=== PATIENT | male | born 1990 | race Caucasian/White ===

== ENCOUNTER 2025-06-01 16:23 | Inpatient (IN) | payer MEDICAID, SELFPAY ==
--- OUTSIDE RECORDS SUMMARY | 2024-04-04 08:00 | XMS_ITS ---
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 Discussed in detail with patient how to practice social distancing by avoiding public spaces and crowds now, wearing a mask in public to keep nose and mouth covered, and washing hands frequently especially before eating and after using the bathroom. Return to clinic if you develop any symtpoms of concern to be rescreened or go to the emergency room if you are having concerning symptoms for COVID-19. 04/04/2024 Other Plan Of Treatment Treatment Notes Assessment Notes Encounter for screening for COVID-19 Cov id screening is negative. Discussed in detail with patient how to practice social distancing by avoiding public spaces and crowds now, wearing a mask in public to keep nose and mouth covered, and washing hands frequently especially before eating and after using the bathroom. Return to clinic if you develop any symtpoms of concern to be rescreened or go to the emergency room if you are having concerning symptoms for COVID-19. Progress Notes * Navya SCHREIBEROB: 0 (34 yo M)Acc No.[id number]:04/04/2024 Progress Notes Patient: Ryan SANTIAGO Provider: GABY Julien :1990 A ge:33 Y S ex:Male Date:04/04/2024 Address:[address] [place], [place] [id number] Subjective: * Chief Complaints: * 1 . office: CPE. * HPI: G eneral: Symptom Screen: - Fever in the last 1 week? Patient denies - New or worsening cough in the last 1 week? Patient denies. - Contact will known COVID exposure in last 5 days? Patient denies -new rash within last 3 weeks? Patient denies RN/MA: - Have you received the COVID-19 vaccine? - Have you received COVID-19 booster? - Have you been tested positive for COVID -19 in the last 7 days? If so where and why?. * ROS: N o acute C/P no acute SOB, No problem with urine, No heartburn or abdominal pain. Endorses being able to climb one fight of stairs without stopping due to SOB, Mood: stable, appetite: good, sleeping well. Denies new skin rashes. * Medical History: Objective: * Vitals: Assessment: * Assessment: 1. E ncounter for screening for COVID-19 - Z11.52 (Primary) Plan: * Treatment: * Images: Billing Information: * Visit Code: * Procedure Codes: Care Plan Details* * Electronic signature of Anil Miranda on 06/01/2025 at 10:09 PM EST Sign off status: Pending * Provider: GABY Julien Date: 1 Generated for Maggy ribera/Rm/Joshua on: 08/02/2024 10:09 PM EST
--- OUTSIDE RECORDS SUMMARY | 2025-03-11 16:00 | XMS_ITS ---
Author Organization [facility] Address [address] [place] [id number] Care Team Providers Care Professor Of Historical Theology Name Role Phone Cedric Miranda Primary Care Provider Migration, Provider Unavailable Unavailable Allergies Allergen (clinical drug ingredient) Drug/Non Drug Allergy documented on EMR Reaction Allergy Type Onset Date Status Penicillin rash Drug Allergy Active REASON FOR VISIT Multum To Medispan Conversion Encounter Medications Medication SIG (Take, Route, Fr equency, Duration) Notes Start Date End Date Status clonazePAM 0.5 MG 1 tab(s) orally 3 ti mes a day as needed for severe anxiety for 30 days 08/06/2023 Active Social History Sex Assigned At : Social History Observation Description Sex Assigned At Male Encounters Encounter Location Date Provider Diagnosis [address] [address] 03/11/2025 Provider Migration Plan Of Treatment No Information Progress Notes * Anneliese SCHREIBERoDOB: 0 (34 yo M)Acc No.[id number]:03/11/2025 Patient: Ryan SANTIAGO Provider: :1990 A ge:34 Y S ex:Male Date:03/11/2025 Address:[address] [place], [place] [phone] Pcp:Cedric Miranda Subjective: * Chief Complaints: * 1 . Multum To Medispan Conversion Encounter. * Medical History: * Medications: T aking clonazePAM 0.5 MG Tablet 1 tab(s) orally 3 times a day as needed for severe anxiety * Allergies: P enicillin: rash - Allergy - Criticality High. Objective: * Vitals: Assessment: Plan: * Treatment: * Images: Billing Information: * Visit Code: * Procedure Codes: * Electronic signature of Prov ider Migration on 06/01/2025 at 10:09 PM EST Sign off status: Pending * Provider: Date: 0 03/11/2025 Generated for Maggy ribera/Rm/Joshua on: 1 08/02/2024 10:09 PM EST
[2025-06-01 14:35] VITALS: BP 153/93; PULSE 95; RESP 18; TEMP 36.4; O2SAT 98
[2025-06-01 17:42] VITALS: BMI 28.4
[2025-06-01] MEDS: Flu Vacc TS2025-26(6mo up)/PF 0.5 ML SYRINGE IM (18:11)
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
[2025-06-01 19:20] VITALS: BP 139/80; PULSE 146; RESP 16; TEMP 36.6; O2SAT 96
[2025-06-01 19:40] VITALS: PULSE 106
--- NOTE | 2025-06-01 20:32 | PC.NURSE ---
Addendum entered by Uzma Mcdaniel RN 06/01/25 20:34: No c/o or pain or any other sx Original Note: 06/01/25 manual HR of 146 at 1720 rechecked at 1940 and was 106 manual. Jeanette tsang NP aware. Will relay to AM providers.
--- NOTE | 2025-06-01 21:41 | P.EN_ITS ---
Event Note Date of Service: 06/01/25 Event Note: Attempted to see patient for hospitalist H&P consult, nurse accompanied me bedside. Patient refusing to provide any medical information and feels like he is being accused of lying when asked about his medical history. Tried to calm patient down and discussed the importance of the consult in the reason why and patient continued to withhold the conversation, suggested patient can reach out if any medical concerns otherwise we will leave him alone at this time. Did offer language interpreter as the patient states that he has a heart condition but he diffusely declined and became more frustrated. Thank you for allowing me to participate in the pt's care. Signing off. Please contact the medical team if any questions or concerns. Time Spent With Patient Time: Total time managing care of this patient today ____ minutes.
--- OUTSIDE RECORDS SUMMARY | 2025-06-01 22:09 | XMS_ITS | Patient Health Record ---
Author Organization [facility] Address [address] [place] [address] Care Team Providers Care Recreational Aide Name Role Phone Cedric Miranda Primary Care Provider [phone] Migration, Provider Unavailable Unavailable Allergies Allergen (clinical drug ingredient) Drug/Non Drug Allergy documented on EMR Reaction Allergy Type Onset Date Status Penicillin rash Drug Allergy Active Reason For Referral No Information Medications Medication SIG (Take, Route, Fr equency, Duration) Notes Start Date End Date Status clonazePAM 0.5 MG 1 tab(s) orally 3 ti mes a day as needed for severe anxiety for 30 days 08/06/2023 Active Immunizations Vaccine Route Administration Date Status Comme nts Hepatitis A IM Intramuscular 04/01/2023 Administered Influenza IM Intramuscular 04/01/2023 Administered Hepatitis B (20 or more) IM Intramuscular 04/01/2023 Administered Hepatitis B (20 or more) IM Intramuscular 05/05/2023 Administered [facility] [id number] 2 Social History Tobacco Use: Social History Observation Description Date Details (start date - stop date) Current Smoker NA - NA Sex Assigned At : Social History Observation Description Sex Assigned At Male Tobacco Use Assessment MU Question Answer Notes What is your current smoking status? current smo ker How often do you smoke? every day How many cigarettes a day do you smoke? 5 or les s Are you interested in quitting? thinking about q uitting Patient counseled on the nadir gers of tobacco use and advised to quit: 07/08/2023 Problems Problem Type SNOMED Code ICD Code Onset Dates Problem Status W/U Status Risk Notes Problem Leukocytosis (134440429) Elevated white blood cell count, unspecified (D72.829) Active confirmed Problem Thyrotoxicosis (92375643) Thyrotoxicosis, unspecified without thyrotoxic crisis or storm (E05.90) Active confirmed Problem Overweight (682629944) Overweight (E66.3) Active confirmed Problem Mixed hyperlipidemia (583892809) Mixed hyperlipidemia (E78.2) Active confirmed Problem Moderate recurrent major depression (11692043) Major depressive disorder, recurrent, moderate (F33.1) Active confirmed Problem Anxiety disorder (102235586) Anxiety disorder, unspecified (F41.9) Active confirmed Problem Essential hypertension (58741328) Essential (primary) hypertension (I10) Active confirmed Problem Cervicalgia (08008437) Cervicalgia (M54.2) Active confirmed Problem Backache (884002238) Dorsalgia, unspecified (M54.9) Active confirmed Problem Body mass index 25-29 - overweight (900316604) Body mass index [BMI] 26.0-26.9, adult (Z68.26) Active confirmed Problem Sheltered homelessness (195904558304745) Sheltered homelessness (Z59.01) Active confirmed Encounters Encounter Location Date Provider Diagnosis [facility] [address] [place] [address] 03/11/2025 Provider [facility] [address] [place], [place] [phone] 09/26/2024 Ángeldieliparisa Miranda Plan Of Treatment Pending Test Test Name Order Date CR Spine Cervical 2 or 3 Views 3 US Thyroid 04/01/2023 CR Spine Lumbar 2 or 3 Views 04/01/2023 CBC WITH AUTO DIFF 05/05/2023 Insurance Providers Payer Name Payer Address Payer Phone Subscriber Number Group Number Insured Name Patient Relationship to Insured Coverage Start Date Coverage End Date [place] Medicaid C3 [address] [place], [place] [id number] Ryan Moreno Self - patient is the insured 3 Medical (General) History Medical History History ICD Code HX of psych admission but unaware of dx MDD,, anxiety D/O HTN seizure hx per clt Hospitalization History Reason Date(Month/Year) Psych admission to [facility] 2020
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
[2025-06-02 07:52] VITALS: BP 152/100; PULSE 100; RESP 20; TEMP 36.9; O2SAT 98
[2025-06-02 08:12] LABS: Alanine Aminotransferase 31 U/L (0-40); Albumin Level 5.1 g/dL (3.5-5.0); Alkaline Phosphatase 81 U/L (39-117); Anion Gap 15 (12-20); Aspartate Amino Transferase 24 U/L (5-37); Blood Urea Nitrogen 16 mg/dL (9-16); Calcium 10.0 mg/dL (8.4-10.2); Carbon Dioxide 22 mmol/L (22-29); Chloride 112 mmol/L (96-108); Cholesterol 218 mg/dL (<200); Creatinine Clr Calc Pharmacy 104.7; Estimated Glomerular Filt Rate > 60; HDL Cholesterol 43 mg/dL (>40); Magnesium 2.4 mg/dL (1.6-2.6); Potassium 3.6 mmol/L (3.3-5.1); Sodium 145 mmol/L (135-145); Total Protein 8.0 g/dL (6.5-8.0); Triglycerides 118 mg/dL (<150)
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
[2025-06-02 08:29] LABS: Free T4 (Free Thyroxine) 1.24 ng/dL (0.71-1.85); Thyroid Stimulating Hormone 1.36 uIU/mL (0.32-4.0)
[2025-06-02 08:41] LABS: Folate 13.5 ng/mL (> or = 4.0); Vitamin B12 607 pg/mL (200-900)
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
[2025-06-02 11:21] VITALS: BP 132/89; PULSE 109
[2025-06-02 13:00] LABS: Hemoglobin 18.0 g/dl (14.0-18.0); Mean Corpuscular HGB Conc 32.7 g/dl (31.0-36.0); Mean Corpuscular Hemoglobin 29.6 pg (27.0-33.0); Mean Corpuscular Volume 90.6 fL (80.0-98.0); NRBC Abs Auto 0.000 X10*3/uL (0.0-0.012); NRBC Pct Auto 0.0 /100WBC (0.0-0.2); PLT CLUMP 1; Red Blood Count 6.08 X10*6/uL (4.60-5.80)
[2025-06-02 14:07] LABS: Hematocrit 55.1 % (42.0-52.0)
[2025-06-02 14:09] LABS: Platelet Count 264 X10*3/uL (160-400); White Blood Count 15.7 X10*3/uL (4.8-10.8)
[2025-06-02 14:17] LABS: Atypical Lymph Absolute Manual 0.3 x10*3/uL; Atypical Lymphs Percent Manual 2 % (0-6); Lymphocytes Absolute Manual 3.0 X10*3/uL (1.2-4.9); Lymphocytes Percent Manual 19 % (20-40); Monocytes Percent Manual 4 % (2-11); Neutrophils Percent Manual 74 % (45-73)
[2025-06-02 14:18] LABS: Eosinophils Absolute Manual 0.2 X10*3/uL (0.0-0.4); Eosinophils Percent Manual 1 % (0-4); Monocytes Absolute Manual 0.6 X10*3/uL (0.1-1.2)
[2025-06-02 14:22] LABS: RBC Morphology NORMAL
[2025-06-02 15:39] LABS: Band Neutrophils Percent 0 % (3-5); Neutrophils Absolute Manual 11.6 X10*3/uL (2.0-8.3)
[2025-06-02 16:45] VITALS: BP 125/79; PULSE 82; RESP 17; O2SAT 97
[2025-06-02 20:00] VITALS: BP 120/79; PULSE 86; RESP 18; TEMP 36.8; O2SAT 98
[2025-06-03 08:30] VITALS: BP 131/82; PULSE 96; RESP 16; TEMP 36.4; O2SAT 97
[2025-06-03] MEDS: Magnesium Hydrox/Alum Hydrox 30 ML ORAL.SUSP PO (08:35)
[2025-06-03 08:42] VITALS: BP 131/82; PULSE 96
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
[2025-06-03 13:52] LABS: Resp Syncy Virus RNA Qual PCR NEGATIVE (Negative); SARS COV2 PCR INHOUSE NEGATIVE (Negative)
[2025-06-03 15:41] VITALS: BP 121/66; PULSE 104
[2025-06-03] MEDS: Throat Lozenge, Medicated LOZENGE 1 LOZENGE MUCOUS MEM (16:56)
[2025-06-03 20:00] VITALS: BP 127/64; PULSE 97; RESP 18; TEMP 36.3; O2SAT 98
[2025-06-04] MEDS: Throat Lozenge, Medicated LOZENGE 1 LOZENGE MUCOUS MEM (07:41)
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
[2025-06-04 08:00] VITALS: BP 129/80; PULSE 88; RESP 14; TEMP 36.3; O2SAT 99
[2025-06-04 09:39] VITALS: BP 120/80; PULSE 80
[2025-06-04] MEDS: Nicotine 21 MG PATCH.TD24 TRANSDERMA (11:54)
[2025-06-04 16:11] VITALS: BP 108/70; PULSE 75
[2025-06-04 20:00] VITALS: BP 127/71; PULSE 81; RESP 17; TEMP 36.8; O2SAT 97
[2025-06-04 23:45] VITALS: BP 121/78; PULSE 88
[2025-06-05 08:00] VITALS: BP 122/85; PULSE 77; RESP 16; TEMP 36.1; O2SAT 98
[2025-06-05 09:03] VITALS: BP 120/60; PULSE 80
[2025-06-05] MEDS: Throat Lozenge, Medicated LOZENGE 1 LOZENGE MUCOUS MEM (09:04)
[2025-06-05 14:13] VITALS: BP 106/83; PULSE 95; O2SAT 97
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
[2025-06-05 16:37] VITALS: BP 107/68
[2025-06-05 20:00] VITALS: BP 123/68; PULSE 90
[2025-06-06 08:00] VITALS: BP 113/61; PULSE 73; RESP 16; TEMP 36.6; O2SAT 98
[2025-06-06 08:09] LABS: Alanine Aminotransferase 33 U/L (0-40); Albumin Level 4.7 g/dL (3.5-5.0); Alkaline Phosphatase 77 U/L (39-117); Anion Gap 12 (12-20); Aspartate Amino Transferase 23 U/L (5-37); Blood Urea Nitrogen 17 mg/dL (9-16); Calcium 9.6 mg/dL (8.4-10.2); Carbon Dioxide 27 mmol/L (22-29); Chloride 108 mmol/L (96-108); Creatinine Clr Calc Pharmacy 125.0; Estimated Glomerular Filt Rate > 60; Potassium 4.3 mmol/L (3.3-5.1); Sodium 143 mmol/L (135-145); Total Protein 7.2 g/dL (6.5-8.0)
--- NOTE | 2025-06-06 10:29 | P.DS_ITS ---
DS: Providers Provider Date of admission: 06/01/25 16:23 Primary care physician: Unknown Physician Consults: 06/01/25 17:59 Consult to Hospitalist Routine Comment: Consulting Provider: [facility] Reason For Exam: admission physical 06/02/25 07:53 Consult to Hospitalist Stat Comment: Consulting Provider: [facility] Reason For Exam: pt feels throat is closing DS: Diagnosis Discharge Diagnosis (1) Unspecified psychosis: Status: Acute DS: Medications Discharge Medications Home Medications: Home Medications ?Medication ?Instructions ?Recorded ?Confirmed Wellbutrin XL 150 mg PO DAILY 06/01/2510/21 clonazepam 0.5 mg PO BID 06/01/2506/01 Data Data Completed and Pending Completed studies during hospitalization [Text1]: 06/02/25 06/02/25 06/03/25 07:24 12:48 12:45 WBC 15.7 H RBC 6.08 H Hgb 18.0 Hct 55.1 H MCV 90.6 MCH 29.6 MCHC 32.7 RDW 14.0 Plt Count 264 MPV 10.7 Immature Gran % (Auto) Cancelled Neut % (Auto) Cancelled Lymph % (Auto) Cancelled Mcclain % (Auto) Cancelled Eos % (Auto) Cancelled Baso % (Auto) Cancelled Lymph # (Auto) Cancelled Mcclain # (Auto) Cancelled Eos # (Auto) Cancelled Baso # (Auto) Cancelled Abs Immat Gran (auto) Cancelled Absolute Neuts (auto) Cancelled Absolute Nucleated RBC 0.000 Nucleated RBC % (auto) 0.0 Neutrophils % (Manual) 74 H Band Neutrophils % 0 L Lymphocytes % (Manual) 19 L Atypical Lymphs % (Man) 2 Monocytes % (Manual) 4 Eosinophils % (Manual) 1 Abs Neuts (Manual) 11.6 H Lymphocytes # (Manual) 3.0 Atyp Lymphs # (Manual) 0.3 Monocytes # (Manual) 0.6 Eosinophils # (Manual) 0.2 Platelet Estimate NORMAL Plt Morphology Comment NORMAL RBC Morphology NORMAL Sodium 145 Potassium 3.6 Chloride 112 H Carbon Dioxide 22 Anion Gap 15 BUN 16 Creatinine 1.11 Estim Creat Clear Calc 104.7 Estimated GFR > 60 Random Glucose 109 Estimat Average Glucose 108 Hemoglobin A1c % 5.4 Calcium 10.0 Magnesium 2.4 Total Bilirubin 0.8 AST 24 ALT 31 Alkaline Phosphatase 81 Total Protein 8.0 Albumin 5.1 H Triglycerides 118 Cholesterol 218 H LDL Cholesterol, Calc 152 H HDL Cholesterol 43 Vitamin B12 607 Folate 13.5 TSH 1.36 Free T4 1.24 Valproic Acid Influenza Type A (PCR) NEGATIVE Influenza Type B (PCR) NEGATIVE RSV RNA Qual (PCR) NEGATIVE SARS-CoV-2 RNA (RT-PCR) NEGATIVE 06/06/25 07:42 WBC RBC Hgb Hct MCV MCH MCHC RDW Plt Count MPV Immature Gran % (Auto) Neut % (Auto) Lymph % (Auto) Mcclain % (Auto) Eos % (Auto) Baso % (Auto) Lymph # (Auto) Mcclain # (Auto) Eos # (Auto) Baso # (Auto) Abs Immat Gran (auto) Absolute Neuts (auto) Absolute Nucleated RBC Nucleated RBC % (auto) Neutrophils % (Manual) Band Neutrophils % Lymphocytes % (Manual) Atypical Lymphs % (Man) Monocytes % (Manual) Eosinophils % (Manual) Abs Neuts (Manual) Lymphocytes # (Manual) Atyp Lymphs # (Manual) Monocytes # (Manual) Eosinophils # (Manual) Platelet Estimate Plt Morphology Comment RBC Morphology Sodium 143 Potassium 4.3 Chloride 108 Carbon Dioxide 27 Anion Gap 12 BUN 17 H Creatinine 0.93 Estim Creat Clear Calc 125.0 Estimated GFR > 60 Random Glucose 95 Estimat Average Glucose Hemoglobin A1c % Calcium 9.6 Magnesium Total Bilirubin 0.4 AST 23 ALT 33 Alkaline Phosphatase 77 Total Protein 7.2 Albumin 4.7 Triglycerides Cholesterol LDL Cholesterol, Calc HDL Cholesterol Vitamin B12 Folate TSH Free T4 Valproic Acid 59.6 Influenza Type A (PCR) Influenza Type B (PCR) RSV RNA Qual (PCR) SARS-CoV-2 RNA (RT-PCR) 06/03/25 12:45 Throat Throat Culture - Final No Group A Beta-hemolytic Streptococci isolated. DS: Summary Time Spent with Patient Time attestation: Total time managing care of this patient today ____ minutes. Discharge Plan Discharge Referrals: [facility] [Primary Care Provider, Medical] - 1 Week Discharge Medications: No Action Wellbutrin XL 150 mg PO DAILY clonazepam 0.5 mg PO BID Print Language: Djiboutian
[2025-06-06 11:21] VITALS: BP 127/67
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
[2025-06-06 15:07] VITALS: BP 126/80; PULSE 86
[2025-06-06 20:00] VITALS: BP 120/57; PULSE 90; RESP 15; TEMP 36.3; O2SAT 97
[2025-06-07] MEDS: Throat Lozenge, Medicated LOZENGE 1 LOZENGE MUCOUS MEM ×2 (02:05→08:20)
[2025-06-07 07:54] VITALS: BP 107/77; PULSE 83; RESP 20; TEMP 36.6; O2SAT 97
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
[2025-06-07 15:24] VITALS: BP 120/63; PULSE 73
[2025-06-07 19:40] VITALS: BP 113/59; PULSE 67; RESP 16; TEMP 36.2; O2SAT 97
[2025-06-07] MEDS: OLANZapine 7.5 MG TABLET 15 MG PO (20:16)
[2025-06-08 07:52] VITALS: BP 137/79; PULSE 77
[2025-06-08 07:55] VITALS: BP 137/79; PULSE 77; RESP 16; TEMP 36.2; O2SAT 99
[2025-06-08 15:11] VITALS: BP 103/67; PULSE 61
[2025-06-08 15:12] VITALS: PULSE 61
[2025-06-08] MEDS: OLANZapine 7.5 MG TABLET 15 MG PO (17:31)
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
[2025-06-08 19:48] VITALS: BP 114/62; PULSE 74; O2SAT 99
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
[2025-06-09 08:20] VITALS: BP 116/81; PULSE 66; RESP 14; TEMP 36.1; O2SAT 98
[2025-06-09 14:29] VITALS: BP 106/68; PULSE 81
[2025-06-09 20:00] VITALS: BP 125/70; PULSE 79; RESP 14; TEMP 36.3; O2SAT 97
[2025-06-09] MEDS: OLANZapine 7.5 MG TABLET 15 MG PO (20:05)
[2025-06-09 21:50] VITALS: BP 132/78
[2025-06-10] MEDS: Throat Lozenge, Medicated LOZENGE 1 LOZENGE MUCOUS MEM (04:10)
[2025-06-10 08:20] VITALS: BP 130/68; PULSE 90; RESP 14; TEMP 36.4; O2SAT 100
[2025-06-10 15:35] VITALS: BP 109/65; PULSE 85
[2025-06-10 20:00] VITALS: BP 114/59; PULSE 80; RESP 18; TEMP 36.7; O2SAT 96
[2025-06-10] MEDS: OLANZapine 7.5 MG TABLET 15 MG PO (20:26)
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
[2025-06-11 08:00] VITALS: BP 101/61; PULSE 70; RESP 16; TEMP 36.2; O2SAT 98
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
[2025-06-11] MEDS: Nicotine 21 MG PATCH.TD24 TRANSDERMA (10:55)
[2025-06-11 14:23] VITALS: BP 112/65; PULSE 94
[2025-06-11 19:30] VITALS: BP 122/77; PULSE 90; RESP 17; TEMP 36.4; O2SAT 97
[2025-06-11] MEDS: OLANZapine 7.5 MG TABLET 15 MG PO (20:05)
[2025-06-11 22:20] VITALS: BP 127/67
[2025-06-12 08:00] VITALS: BP 109/67; PULSE 84; RESP 16; TEMP 36.9; O2SAT 97
[2025-06-12] MEDS: Nicotine 21 MG PATCH.TD24 TRANSDERMA (11:22)
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
[2025-06-12] MEDS: Magnesium Hydrox/Alum Hydrox 30 ML ORAL.SUSP PO (14:20)
[2025-06-12 14:29] VITALS: BP 117/77; PULSE 86
--- NOTE | 2025-06-12 15:36 | P.DS_ITS ---
DS: Providers Provider Date of admission: 06/01/25 16:23 Date of discharge: 06/13/25 Primary care physician: Unknown Physician Attending physician on admission: Willian Tobar Consults: 06/01/25 17:59 Consult to Hospitalist Routine Comment: Consulting Provider: [facility] Reason For Exam: admission physical 06/02/25 07:53 Consult to Hospitalist Stat Comment: Consulting Provider: [facility] [place] Reason For Exam: pt feels throat is closing Attending physician on discharge: Shante Villanueva DS: Diagnosis Discharge Diagnosis (1) Delusional disorder: Status: Acute (2) Unspecified psychosis: Status: Acute DS: Medications Discharge Medications Home Medications: Home Medications ?Medication ?Instructions ?Recorded ?Confirmed Wellbutrin XL 150 mg PO DAILY 06/01/2510/21 clonazepam 0.5 mg PO BID 06/01/2506/01 Data Data Completed and Pending Completed studies during hospitalization [Text1]: 06/06/25 06/09/25 07:42 07:59 Sodium 143 Potassium 4.3 Chloride 108 Carbon Dioxide 27 Anion Gap 12 BUN 17 H Creatinine 0.93 Estim Creat Clear Calc 125.0 Estimated GFR > 60 Random Glucose 95 Calcium 9.6 Total Bilirubin 0.4 AST 23 ALT 33 Alkaline Phosphatase 77 Total Protein 7.2 Albumin 4.7 Valproic Acid 59.6 85.5 06/03/25 12:45 Throat Throat Culture - Final No Group A Beta-hemolytic Streptococci isolated. DS: Summary Hospital Course Hospital Course: Per admission note from covering psychiatric provider: Mr. Josh Parekh is a 34 years old, Croatian-speaking, [place], single male with unknown medication hx, hx of depression who arrived at [facility] via vehicle transportation from his mom secondary to suicidal ideation, perceptual disturbances, paranoia, worsening anxiety, and confusion. Patient do not understand why he was dropped off at the hospital by his mom. Patient reports that he feels confused. He admits having prior diagnosis of depression anxiety even though states that he is only on anxiety medication. History of hallucinations. History of extremely violent and mom is scared. On M3: Met with patient at 1740, patient stated reason for this admission is to get the help so that I can act the way people want me to act . Patient mumbling send a provoked someone . Feel a little bit. I do not know how to explain when asked for details of why he said that he has was provoked somewhat. Patient reported that he is single, when asked if he has any children, he states that is a very good question . So he was not sure if he had children. Reported that he has has been at the care home, at his mom's home, and on the street and consider himself as a homeless person. He was not sure how long he has been homeless. Substance use: Reports he use marijuana when I can to help me with depression . Denies that he is abusing to it. Reported that on ready quit smoking. Alcohol is not my problem. Denies other substance use. Legal issues/occupational/education level: Not able to obtain due to disorganization thought process. Trauma history: Reported that he was traumatized by stuff that insane but did not give further information. Patient reports that sometimes hearing voices when asked about hallucinations. Patient repeatedly saying thinking thinking and thinking. I can not control . Reports history of suicide attempt but could not giving details. He was not answering directly if he has suicidal thoughts or self-harm thoughts or homicidal thoughts saying nobody safe anywhere . Do not make any threatening statements. Do not demonstrate any unsafe behavior during assessment. When asked about his mood he said a lot anxiety. I am trying to figure it out . I am not making this up which his repeat a couple of times out of topic. Reported that he can not sleep or eat well lately. Patient is alert and oriented, wearing hospital attire, unkempt hair. Cooperative, but can be irritable, anxious, depressed. Very disorganized, appeared to be confused, overwhelmed racing thoughts, impaired judgment and insight. He does not know why he is here and what he is here for in what condition that he needs to be here. Placed in restraint room due to paranoid, he said that he can not be around with people. Has no knowledge about medication, poor historian, with thought blocked, limited. Poor to fair eye contact. Thought content is with treatment, motivated to get better. Do not make any suicidal or homicidal statements. Reports hearing voices, appeared to preoccupied, paranoid. Past Psychiatric History: Poor historian. Not able to obtain. Per record, patient has history of inpatient level of care admissions. Initial tx plan: Patient on 15 minute checks for safety. Admitted to M3. CV. He states that he wants to treatment, he wants to take medication. Work with treatment team to do collateral with family and outpatient providers. Patient is poor historian. Restart on Zyprexa 5 mg at bedtime tonight with p.r.n. available. Clonazepam 0.5 twice a day as needed for severe anxiety per record. We will hold Wellbutrin as a home medication at this time due to psychotic behavior. 06/02/25: T/W reviewed pt's [facility] record, where he had a similar presentation during a one month admission in 2020. Per [facility] record- He endorsed SI, AH x 3-4 wks, paranoia, poor sleep/appetite. He was noted to be suspicious, guarded, worried that his family was unsafe, somatically preoccupied, intermittently agitated and postured toward staff. Didn't require restraints. He was started on Zyprexa Zydis, which was titrated to 5 mg tid, Haldol 5 mg bid was added. Pt utilized prn haldol 5 mg, lorazepam 2 mg, and benadryl 50 mg for agitation most often in the afternoon and evening (available up to 4x/day). He was tapered off Zyprexa due to inadequate effect in tx of psychosis, Seroquel SR was added. He was dc'd on Haldol 5 mg qam/15 mg qhs, benztropine, Seroquel SR 300 mg qhs and his paranoia had improved. He presented to [facility] ~1 wk after the [facility] d/c due to c/o progressively worsening rigidity (new since d/c from [facility]), a/w generalized weakness and lower extremity spasiticity and pain, which was thought to be c/w EPS. Haldol was d/c'd and Seroquel was held, he received baclofen and clonazepam and the physical sx significantly improved. He was d/c'd on Seroquel SR 300 mg. Other prior med trials per [facility] record -risperidone -Abilify Plan- -Continue 5 min safety checks (started due to pt's irritability, disorganization, h/o aggression) -Will avoid haldol due to h/o significant EPS. -Titrate olanzapine to 10 mg at hs, increase prn olanzapine to 5 mg tid. -Pt refuses to take Seroquel. Could consider clozapine since it has a low risk of EPS. -Started Depakote ER 1000 mg for agitation/impulse control, given h/o aggressive behavior. -Added lorazepam 1 mg 4x/day prn for agitation/severe anxiety; Benadryl 50 mg 4x/day prn for anxiety (helped on [facility]) and propranolol 20 mg tid prn for EPS 06/05/25: Mother came in today for a visit, requested to talk the team. SW and covering provider met with patient and mom in the presence of entry level drafter as patient signed 3 day notice and mom has safety concerns. Mom does not think patient is stable enough. Patient agrees to retract it and then later on of today he signed another one per nursing. Patient reports he had SI prior to be coming here but he feels safe and does not have SI/SIB/HI/AVH. Report he has racing thoughts and feels like he needs to check his door all the time. Not directly saying he has OCD but feel like he does not feel safe. He has been staying in Anti room but moved to private/single room this afternoon d/t paranoid thoughts. Patient reports his mind is racing and experience high in anxiety. However, reports that he feels medications are helpful but still have lots of racing thoughts. Per record, patient has been using all PRN available which some positive effects over all. I also reviewed with patient some medication changes made today. Patient is receptive, slept better and no appetite issues. Scheduled Proprannol 20mg TID for Possible/preventative EPS/ anxiety Scheduled Olazapine 10mg in the AM at 0800 in addition to HS and PRN dose (total max of 40mg daily) Melatonin 9mg at HS for insomnia CLonidine 0.1mg TID PRN for anxiety. Noted that patient is currently on PRN Ativan and Klonopin prn. 06/06: Pt is paranoid, guarded and expressed concern about his family's safety today but refused to answer multiple questions in the setting of his paranoia. VPA level 59.6 this am. Pt agreeable to titrate VPA ER to 1500 mg tonight to reduce agitation. He has a h/o aggression. LFTs wnl. Started olanzapine 5 mg at midday. Otherwise continue current tx plan 06/07: Pt reports that his thoughts are clearer but he remains paranoid, guarded . T/W encouraged pt to retract 3-day note for further stabilization and he reluctantly agreed after t/w informed him that we will aim for a d/c date of next or . Pt agreed w/ plan to titrate the hs olanzapine to 15 mg. 06/08: Pt reports feeling calmer, spending more time in the milieu, seems less paranoid. Will continue current tx plan. Will check VPA level tomorrow am 06/09: VPA level 85.5. Mood, psychosis, and irritability have improved. Continue current tx plan. 06/10: no changes today 06/11: refusing VPA, paranoid, perseverative 06/12: Pt calmly requests to be d/c'd today due to concerns about his grandmother. Unclear if his grandmother is actually ill but his thought process, irritability/agitation have significantly improved and he denies AHVH, SI/violent ideation. He took his VPA last night. Pt was able to tolerate a discussion around holding off on d/c till tomorrow if he remains relatively stable. His mom will slat pickler him at 11. Status at Discharge Functional status at discharge: independent ambulation Overall status at discharge: patient is progressing back to baseline Time Spent with Patient Time attestation: Total time managing care of this patient today ____ minutes. Time spent: Less than 30 minutes Discharge Plan Discharge Anticipated Discharge Date/Time: 06/13/25 11:00 Patient Disposition: Home, Self-Care Discharge Diagnosis: Delusional disorder Unspecified mood d/o Referrals: [facility] (therapy and psychiatry services) [Other] - 1 Week Referral Note: walk in hours are Thursday-Thursday 8am-8pm, as well as weekend hours from 9am-5pm. Crisis services available 19/01 [facility] [Provider Group] - 1 Week Referral Note: 06-13-25 [facility] was added to patients chart. Please call [phone] to schedule a follow up appt within 7-10 days of discharge. No release or PCP on file. Discharge Medications: New diphenhydramine HCl 25 mg Capsule See Rx Instructions .ROUTE .COMPLEX PRN (Reason: anxiety ) 30 Days Qty: 120 0RF Rx Instructions: Take 2 caps po bid prn for anxiety and/or muscle stiffness after taking risperidone nicotine 21 mg/24 hr Patch 24 Hour 21 mg transdermal DAILY PRN (Reason: nicotine craving) 28 Days Qty: 28 0RF propranolol 20 mg Tablet 20 mg PO TID 30 Days Qty: 90 0RF Protocol: Hold for SBP/HR < HOLD for SBP < : 90 HOLD for HR < : 60 divalproex 500 mg Tablet Extended Release 24 Hr 1,500 mg PO BEDTIME 30 Days Qty: 90 0RF ibuprofen 600 mg Tablet 600 mg PO Q6H PRN (Reason: Pain, Moderate(Pain Scale 4-6)) Qty: 0 0RF olanzapine 10 mg Tablet See Rx Instructions .ROUTE .COMPLEX 30 Days Qty: 30 0RF Rx Instructions: Take 1 tab po qam. May take 1/2 to 1 additional tab daily prn for agitation trazodone 50 mg Tablet 50 mg PO BEDTIME PRN (Reason: Insomnia) 30 Days Qty: 30 0RF olanzapine 20 mg tablet 20 mg PO BEDTIME 30 Days Qty: 30 0RF melatonin 3 mg Tablet 9 mg PO BEDTIME 30 Days Qty: 90 0RF MAG-AL 200-200 mg/5 mL Suspension 30 ml PO Q6H PRN (Reason: Heartburn/Nausea) Qty: 0 0RF Sore Throat (benzocaine-menth) 15-3.6 mg Lozenge 1 david mucous membrane Q2H PRN (Reason: Sore Throat) Qty: 0 0RF clonazepam 1 mg Tablet 1 mg PO TID 30 Days Qty: 90 0RF Discontinued Wellbutrin XL 150 mg PO DAILY clonazepam 0.5 mg PO BID Discharge Orders: Discharge Order (Routine); Ordered 06/13/25 Ordered By: Shante Villanueva Diet: Regular diet Activity on Discharge: No Restrictions Stand Alone Forms: Patient Portal Discharge page Print Language: Peruvian Care Plan Goals: Maintain safe behaviors Practice coping skills Take medications as prescribed Maintain regular follow-ups with your outpatient providers Health Concerns: Sore throat. Neg for influenza A,B, RSV and Covid. Improved Plan of Treatment: Follow up with your psychiatric provider, PCP and other outpatient providers Take your medication as prescribed Assessment: Risk assessment at the time of discharge: Patient was interviewed on the day of discharge and found to be fully oriented, without any SI or violent ideation. Pt has improved insight and judgment and plans to continue treatment Pt is not at imminent risk of harm to self or others and has a safety plan that includes presenting to the closest ER or calling 911 if feeling unsafe. Pt has been observed closely by unit staff and has not engaged in any behaviors that suggest dangerous to self or others and has demonstrated appropriate bheaviors and impulse control.
[2025-06-12 19:25] VITALS: BP 123/59; PULSE 96; RESP 16; TEMP 36.2; O2SAT 96
[2025-06-12] MEDS: OLANZapine 7.5 MG TABLET 15 MG PO (20:07)
[2025-06-13 00:03] VITALS: BP 120/58
[2025-06-13] MEDS: Magnesium Hydrox/Alum Hydrox 30 ML ORAL.SUSP PO (04:51)
[2025-06-13 08:30] VITALS: BP 119/74; PULSE 88; RESP 16; TEMP 36.2; O2SAT 97
== END 2025-06-13 11:00 | disposition home or self-care (01) | DRG 753 ==
PROVIDERS: Clinical Nurse Specialist Psychiatric/Mental Health, Adult; Nurse Practitioner Family; Nurse Practitioner Psychiatric/Mental Health; Admitting Provider Psychiatry & Neurology Psychiatry; Visit Provider Psychiatry & Neurology Psychiatry
DX: F39 Unspecified mood [affective] disorder (principal); F22 Delusional disorders; R45.851 Suicidal ideations; J02.9 Acute pharyngitis, unspecified; F17.210 Nicotine dependence, cigarettes, uncomplicated; Z20.822 Contact with and (suspected) exposure to COVID-19; Z23 Encounter for immunization; Z71.6 Tobacco abuse counseling; Z79.899 Other long term (current) drug therapy
CPT/HCPCS: 36415; 80053; 80061; 80164; 82607; 82746; 83036; 83735; 84439; 84443; 85007; 85025; 85027; 87070; 87637; 90656

== ENCOUNTER → 2025-06-01 16:23 | Outpatient (BNV) | payer OTHER, SELFPAY | PROVIDERS: Admitting Provider Psychiatry & Neurology Psychiatry; Visit Provider Psychiatry & Neurology Psychiatry | DX: F29 Unspecified psychosis not due to a substance or known physiological condition (principal) | CPT/HCPCS: 99232 ==

== ENCOUNTER → 2025-06-01 16:23 | Outpatient (BNV) | payer MEDICAID, SELFPAY | PROVIDERS: Admitting Provider Psychiatry & Neurology Psychiatry; Visit Provider Physician Assistant | DX: F39 Unspecified mood [affective] disorder (principal) | CPT/HCPCS: 99221; 99499 ==